=== PATIENT | female | born 1955 | race Caucasian/White ===

== ENCOUNTER 2016-10-25 23:33 | Emergency (ER) | payer OTHER ==
[2016-10-26 01:12] VITALS: BP 115/85
== END 2016-10-26 01:12 | disposition home or self-care (01) ==
LOC: ED 23:33
DX: S30.861A Insect bite (nonvenomous) of abdominal wall, initial encounter (principal); S80.862A Insect bite (nonvenomous), left lower leg, initial encounter; S80.861A Insect bite (nonvenomous), right lower leg, initial encounter; E11.9 Type 2 diabetes mellitus without complications; Z79.4 Long term (current) use of insulin; W57.XXXA Bitten or stung by nonvenomous insect and other nonvenomous arthropods, initial encounter; Y93.89 Activity, other specified; Y92.89 Other specified places as the place of occurrence of the external cause; Y99.8 Other external cause status
CPT/HCPCS: Q0163

== ENCOUNTER 2016-11-14 19:20 | Emergency (ER) | payer OTHER ==
[2016-11-14 22:12] VITALS: BP 145/86
== END 2016-11-14 22:12 | disposition home or self-care (01) ==
LOC: ED 19:20
DX: S30.0XXA Contusion of lower back and pelvis, initial encounter (principal); S70.02XA Contusion of left hip, initial encounter; G89.29 Other chronic pain; I10 Essential (primary) hypertension; K21.9 Gastro-esophageal reflux disease without esophagitis; E11.9 Type 2 diabetes mellitus without complications; E66.9 Obesity, unspecified; M13.80 Other specified arthritis, unspecified site; Z79.4 Long term (current) use of insulin; X50.1XXA Overexertion from prolonged static or awkward postures, initial encounter; Y93.89 Activity, other specified; Y99.8 Other external cause status; Y92.89 Other specified places as the place of occurrence of the external cause
CPT/HCPCS: J1885

== ENCOUNTER 2016-12-11 08:54 | Emergency (ER) | payer OTHER ==
[2016-12-11 10:55] VITALS: BP 154/81
== END 2016-12-11 11:11 | disposition home or self-care (01) ==
LOC: ED 08:54
DX: S90.852A Superficial foreign body, left foot, initial encounter (principal); E11.9 Type 2 diabetes mellitus without complications; I10 Essential (primary) hypertension; Z79.4 Long term (current) use of insulin; X58.XXXA Exposure to other specified factors, initial encounter; Y99.8 Other external cause status; Y93.89 Activity, other specified; Y92.89 Other specified places as the place of occurrence of the external cause
CPT/HCPCS: J2001; Q0092

== ENCOUNTER 2017-01-09 12:54 | Emergency (ER) | payer OTHER ==
[~2017-01-09] VITALS: Ht 172.7 cm; Wt 129.3 kg
[2017-01-09 14:27] VITALS: BP 146/89
== END 2017-01-09 14:28 | disposition home or self-care (01) ==
LOC: ED 12:54
DX: S80.01XA Contusion of right knee, initial encounter (principal); M17.31 Unilateral post-traumatic osteoarthritis, right knee; E11.9 Type 2 diabetes mellitus without complications; I10 Essential (primary) hypertension; W19.XXXA Unspecified fall, initial encounter; Y93.89 Activity, other specified; Y92.89 Other specified places as the place of occurrence of the external cause; Y99.8 Other external cause status; Z79.82 Long term (current) use of aspirin; Z79.4 Long term (current) use of insulin; Z98.51 Tubal ligation status
CPT/HCPCS: J1885

== ENCOUNTER 2017-01-15 23:20 | Inpatient (IN) | payer OTHER ==
[~2017-01-15] VITALS: Ht 172.7 cm; Wt 130.3 kg
[2017-01-16 00:31] LABS: BASOPHIL % 0.6 % (0-2); PLATELET COUNT 200 x10^3mcL (130-400); RED CELL DISTRIBUTION WIDTH 13.2 % (11.5-14.5)
[2017-01-16 00:48] LABS: CALCIUM 8.7 mg/dL (8.5-10.1); CARBON DIOXIDE 27.7 mmol/L (21-32); CHLORIDE SERUM 98 mmol/L (98-107); CREATININE SERUM 0.9 mg/dL (0.6-1.0); GFR1 > 60 mL/min; GLUCOSE SERUM 446 mg/dL (74-106); POTASSIUM SERUM 3.6 mmol/L (3.5-5.1); SODIUM SERUM 133 mmol/L (136-145)
[2017-01-16 00:54] LABS: ALKALINE PHOSPHATASE 124 U/L (46-116); ALT/SGPT 54 U/L (14-59); AST/SGOT 26 U/L (15-37); BILIRUBIN TOTAL 0.6 mg/dL (0.20-1.00); TOTAL PROTEIN, SERUM 6.7 g/dL (6.4-8.2)
[2017-01-16 00:57] LABS: ALBUMIN 3.3 g/dL (3.4-5.0)
[2017-01-16] MEDS ORDERED: ASPIR 8181 MG PO (01:23)
[2017-01-16] MEDS ORDERED: GLIPIZIDE10 M2 PO (01:23)
[2017-01-16] MEDS ORDERED: LANTUS SOLOS100 U/M1 SQ (01:24)
[2017-01-16] MEDS ORDERED: GABAPENTIN300 M4 PO (02:40)
[2017-01-16] MEDS ORDERED: SIMVASTATIN20 M1 PO (02:41)
[2017-01-16] MEDS ORDERED: BENAZEPRIL HYDR20 M1 PO (02:46)
[2017-01-16] MEDS ORDERED: GLUCOTROL10 MG PO (02:46)
[2017-01-16] MEDS ORDERED: APAP/HYDROCODON1 T11 PO (02:49)
[2017-01-16 03:18] LABS: T3 TOTAL 1.86 ng/mL
[2017-01-16 03:24] LABS: CHOLESTEROL/HDL RATIO 3.2
[2017-01-16 03:42] VITALS: BP 136/69
[2017-01-16 03:43] LABS: FREE T4 1.28 ng/dL (0.76-1.46); FREE THYROXINE INDEX 3.6 ug/dL (1.4-4.5)
[2017-01-16 08:13] VITALS: BP 131/64
[2017-01-16 11:38] LABS: microscopic required? NO
[2017-01-16 11:51] LABS: urine erythrocyte NEGATIVE (NEGATIVE)
[2017-01-16 15:05] VITALS: BP 119/65
[2017-01-16 18:21] VITALS: BP 125/74
[2017-01-16 20:41] VITALS: BP 151/75
[2017-01-17 05:43] VITALS: BP 152/74
[2017-01-17 07:15] LABS: CALCIUM 8.7 mg/dL (8.5-10.1); CARBON DIOXIDE 29.6 mmol/L (21-32); CHLORIDE SERUM 104 mmol/L (98-107); CREATININE SERUM 0.9 mg/dL (0.6-1.0); GFR1 > 60 mL/min; GLUCOSE SERUM 239 mg/dL (74-106); PHOSPHOROUS 4.2 mg/dL (2.5-4.9); SODIUM SERUM 140 mmol/L (136-145)
[2017-01-17 07:21] LABS: PLATELET COUNT 195 x10^3mcL (130-400); RED CELL DISTRIBUTION WIDTH 13.8 % (11.5-14.5)
[2017-01-17 08:22] LABS: ATYPICAL LYMPH 1 %; BAND NEUTROPHIL 3 % (0-10); BASOPHIL 0 % (0-2); MONOCYTE 11 % (0-7); PLATELET MORPHOLOGY GIANT PLATELET SEEN; SEGMENTED NEUTROPHILS 53 % (37-75); rbc morphology (normal/abnorm) ABNORMAL (NORMAL); tear drop cell (dacryocyte) 1+
[2017-01-17 10:12] VITALS: BP 137/59
[2017-01-17] MEDS ORDERED: NOR10T PO (11:17)
[2017-01-17] MEDS ORDERED: BENAZEPRIL HYDR20 M1 PO (11:21)
[2017-01-17] MEDS ORDERED: LIPI20 PO (11:27)
[2017-01-17] MEDS ORDERED: METFORMIN HCL500 MG PO (11:28)
[2017-01-17 13:44] VITALS: BP 137/59
== END 2017-01-17 15:07 | disposition home or self-care (01) | DRG 197 ==
LOC: ED 23:20 → DU 01-16 02:28 → MU 01-17 13:42 → DU 01-17 13:43
PROVIDERS: Emergency Medicine; Family Medicine; ADMIT Family Medicine
DX: E11.51 Type 2 diabetes mellitus with diabetic peripheral angiopathy without gangrene (principal); E11.628 Type 2 diabetes mellitus with other skin complications; E44.0 Moderate protein-calorie malnutrition; E11.65 Type 2 diabetes mellitus with hyperglycemia; L03.115 Cellulitis of right lower limb; E87.1 Hypo-osmolality and hyponatremia; L03.116 Cellulitis of left lower limb; Z68.41 Body mass index [BMI] 40.0-44.9, adult; I83.218 Varicose veins of right lower extremity with both ulcer of other part of lower extremity and inflammation; I83.228 Varicose veins of left lower extremity with both ulcer of other part of lower extremity and inflammation; I16.0 Hypertensive urgency; R00.1 Bradycardia, unspecified; E03.9 Hypothyroidism, unspecified; E66.01 Morbid (severe) obesity due to excess calories; Z79.4 Long term (current) use of insulin
CPT/HCPCS: 82962; 83880; 84439; J0696; J1815; J2270; J2405; J3490; J7030; Q0092

== ENCOUNTER 2017-06-05 12:26 | Emergency (ER) | payer MEDICAID ==
[~2017-06-05] VITALS: Ht 172.7 cm; Wt 127.0 kg
[~2017-06-05 12:26] MED LIST: APAP/HYDROCODON1 T11 PO; ASPIR 8181 MG PO; BENAZEPRIL HYDR20 M1 PO; GABAPENTIN300 M4 PO; GLIPIZIDE10 M2 PO; GLUCOTROL10 MG PO; LANTUS SOLOS100 U/M1 SQ; LIPI20 PO; METFORMIN HCL500 MG PO; NOR10T PO; SIMVASTATIN20 M1 PO
[2017-06-05 13:36] VITALS: BP 137/101
== END 2017-06-05 13:36 | disposition home or self-care (01) ==
LOC: ED 12:26
DX: B35.6 Tinea cruris (principal); B35.4 Tinea corporis; I10 Essential (primary) hypertension; E11.9 Type 2 diabetes mellitus without complications; G89.29 Other chronic pain; M54.9 Dorsalgia, unspecified; B19.20 Unspecified viral hepatitis C without hepatic coma

== ENCOUNTER 2017-12-03 15:21 | Inpatient (IN) | payer MEDICAID ==
[~2017-12-03] VITALS: Ht 175.3 cm; Wt 127.5 kg
[2017-12-03 15:23] VITALS: Ht 175.3 cm; Wt 127.5 kg
[2017-12-03 16:29] LABS: BASOPHIL % 0.4 % (0-2); PLATELET COUNT 225 x10^3mcL (130-400); RED CELL DISTRIBUTION WIDTH 12.6 % (11.5-14.5)
[2017-12-03 16:43] LABS: BILIRUBIN TOTAL 0.6 mg/dL (0.20-1.00); CALCIUM 8.6 mg/dL (8.5-10.1); CARBON DIOXIDE 28.9 mmol/L (21-32); CREATININE SERUM 1.2 mg/dL (0.6-1.0); POTASSIUM SERUM 4.2 mmol/L (3.5-5.1)
[2017-12-03 16:44] LABS: ALBUMIN 3.3 g/dL (3.4-5.0)
[2017-12-03 16:56] LABS: CK-MB 2.9 ng/mL (0-3.6)
[2017-12-03 16:58] LABS: microscopic required? NO
[2017-12-03 17:18] LABS: UA SPECIFIC GRAVITY <=1.005 (1.005-1.035); urine erythrocyte NEGATIVE (NEGATIVE)
[2017-12-03 17:45] LABS: CHOLESTEROL/HDL RATIO 3.1; MAGNESIUM 1.9 mg/dL (1.8-2.4); PHOSPHOROUS 3.7 mg/dL (2.5-4.9)
[2017-12-03 17:53] LABS: T3 TOTAL 1.63 ng/mL
[2017-12-03 18:02] LABS: FREE T4 1.26 ng/dL (0.76-1.46); FREE THYROXINE INDEX 4.1 ug/dL (1.4-4.5); T4(THYROXINE) 15.3 ug/dL (4.7-13.3)
[2017-12-03 18:03] VITALS: BP 154/75
[2017-12-03] MEDS ORDERED: HUMALOG100 U/ML SC (19:24)
[2017-12-03 20:50] VITALS: BP 158/71
[2017-12-03 22:43] LABS: AMPHETAMINE QUAL UR NONE DETECTED (NEG <=1000)
[2017-12-04 02:30] VITALS: BP 144/70
[2017-12-04 05:43] VITALS: BP 142/59
[2017-12-04 07:24] LABS: BASOPHIL % 0.6 % (0-2); PLATELET COUNT 193 x10^3mcL (130-400); RED CELL DISTRIBUTION WIDTH 12.6 % (11.5-14.5)
[2017-12-04 07:43] LABS: CALCIUM 8.1 mg/dL (8.5-10.1); CARBON DIOXIDE 27.9 mmol/L (21-32); CHLORIDE SERUM 107 mmol/L (98-107); CREATININE SERUM 0.8 mg/dL (0.6-1.0); GFR1 > 60 mL/min; GLUCOSE SERUM 207 mg/dL (74-106); MAGNESIUM 1.8 mg/dL (1.8-2.4); PHOSPHOROUS 3.7 mg/dL (2.5-4.9); POTASSIUM SERUM 3.9 mmol/L (3.5-5.1); SODIUM SERUM 144 mmol/L (136-145)
[2017-12-04 08:49] VITALS: BP 139/68
[2017-12-04 18:00] VITALS: BP 148/73
[2017-12-04 20:53] VITALS: BP 108/64
[2017-12-05 05:33] VITALS: BP 127/62
[2017-12-05 06:46] LABS: CALCIUM 8.2 mg/dL (8.5-10.1); CARBON DIOXIDE 28.2 mmol/L (21-32); CHLORIDE SERUM 106 mmol/L (98-107); CREATININE SERUM 0.9 mg/dL (0.6-1.0); GFR1 > 60 mL/min; GLUCOSE SERUM 227 mg/dL (74-106); MAGNESIUM 1.7 mg/dL (1.8-2.4); PHOSPHOROUS 4.1 mg/dL (2.5-4.9); SODIUM SERUM 140 mmol/L (136-145)
[2017-12-05 08:25] LABS: BASOPHIL % 0.5 % (0-2); PLATELET COUNT 201 x10^3mcL (130-400); RED CELL DISTRIBUTION WIDTH 12.8 % (11.5-14.5)
[2017-12-05 09:17] VITALS: BP 135/44
[2017-12-05] MEDS ORDERED: GLU850 PO (09:25)
[2017-12-05] MEDS ORDERED: GLU10 PO (09:25)
[2017-12-05] MEDS ORDERED: LEVEMIR100 U/M1 SC (09:29)
[2017-12-05] MEDS ORDERED: CLINDAMYCIN HC300 MG PO (09:34)
[2017-12-05] MEDS ORDERED: LAC PO (09:34)
[2017-12-05] MEDS ORDERED: LIPI10 PO (09:35)
[2017-12-05] MEDS ORDERED: ECO81 PO (09:35)
[2017-12-05] MEDS ORDERED: GLUCOCOM LANCE1 EAC1 MC (11:28)
[2017-12-05 11:35] VITALS: BP 135/44
[2017-12-05] MEDS ORDERED: FREESTYLE LITE1 EAC2 MC (11:46)
[2017-12-05] MEDS ORDERED: BLOOD GLUCOSE1 EACH MC (11:47)
[2017-12-05] MEDS ORDERED: APAP/HYDROCODON1 T13 PO (14:19)
== END 2017-12-05 14:30 | disposition home or self-care (01) | DRG 720 ==
LOC: ED 15:21 → MU 17:13 → DU 17:13 → MU 12-04 08:21
PROVIDERS: Emergency Medicine; Family Medicine
DX: A41.9 Sepsis, unspecified organism (principal); E11.65 Type 2 diabetes mellitus with hyperglycemia; I10 Essential (primary) hypertension; L03.115 Cellulitis of right lower limb; E44.1 Mild protein-calorie malnutrition; L03.116 Cellulitis of left lower limb; Z68.41 Body mass index [BMI] 40.0-44.9, adult; E66.01 Morbid (severe) obesity due to excess calories; E87.1 Hypo-osmolality and hyponatremia; E02 Subclinical iodine-deficiency hypothyroidism; Z86.73 Personal history of transient ischemic attack (TIA), and cerebral infarction without residual deficits; B19.20 Unspecified viral hepatitis C without hepatic coma; Z83.3 Family history of diabetes mellitus; Z82.49 Family history of ischemic heart disease and other diseases of the circulatory system; E83.42 Hypomagnesemia; D48.0 Neoplasm of uncertain behavior of bone and articular cartilage
CPT/HCPCS: 82962; 83880; 84439; J0690; J1815; J3475; J3490; J7030; Q0092; Q0163

== ENCOUNTER 2018-02-07 08:11 | Emergency (ER) | payer MEDICAID ==
[~2018-02-07] VITALS: Ht 172.7 cm; Wt 125.6 kg
[~2018-02-07 08:11] MED LIST changes: +APAP/HYDROCODON1 T13 PO; +BLOOD GLUCOSE1 EACH MC; +CLINDAMYCIN HC300 MG PO; +ECO81 PO; +FREESTYLE LITE1 EAC2 MC; +GLU10 PO; +GLU850 PO; +GLUCOCOM LANCE1 EAC1 MC; +HUMALOG100 U/ML SC; +LAC PO; +LEVEMIR100 U/M1 SC; +LIPI10 PO
[2018-02-07 08:19] VITALS: Ht 172.7 cm; Wt 125.6 kg
[2018-02-07 09:46] VITALS: BP 145/77
== END 2018-02-07 09:46 | disposition home or self-care (01) ==
LOC: ED 08:11
DX: M72.2 Plantar fascial fibromatosis (principal); I10 Essential (primary) hypertension; E11.9 Type 2 diabetes mellitus without complications; G89.29 Other chronic pain; M54.9 Dorsalgia, unspecified
CPT/HCPCS: Q0092

== ENCOUNTER 2018-03-06 16:59 | Emergency (ER) | payer MEDICAID ==
[~2018-03-06] VITALS: Ht 172.7 cm; Wt 125.6 kg
[2018-03-06 17:03] VITALS: Ht 172.7 cm; Wt 125.6 kg
[2018-03-06 19:13] VITALS: BP 144/80
== END 2018-03-06 19:13 | disposition home or self-care (01) ==
LOC: ED 16:59
DX: B35.6 Tinea cruris (principal); R22.2 Localized swelling, mass and lump, trunk; I10 Essential (primary) hypertension; Z86.73 Personal history of transient ischemic attack (TIA), and cerebral infarction without residual deficits; E11.9 Type 2 diabetes mellitus without complications

== ENCOUNTER 2018-04-27 20:25 | Emergency (ER) | payer MEDICAID ==
[~2018-04-27] VITALS: Ht 172.7 cm; Wt 122.7 kg
[2018-04-27 20:37] VITALS: Ht 172.7 cm; Wt 122.7 kg
[2018-04-27 22:28] LABS: BASOPHIL % 0.6 % (0-2); PLATELET COUNT 212 x10^3mcL (130-400); RED CELL DISTRIBUTION WIDTH 13.2 % (11.5-14.5)
[2018-04-27 22:45] LABS: ALBUMIN 3.5 g/dL (3.4-5.0); BILIRUBIN TOTAL 0.8 mg/dL (0.20-1.00); CALCIUM 8.9 mg/dL (8.5-10.1); CARBON DIOXIDE 31.5 mmol/L (21-32); CREATININE SERUM 1.1 mg/dL (0.6-1.0); POTASSIUM SERUM 4.6 mmol/L (3.5-5.1); TOTAL PROTEIN, SERUM 7.5 g/dL (6.4-8.2)
[2018-04-27 23:26] VITALS: BP 154/78
== END 2018-04-28 00:55 | disposition home or self-care (01) ==
LOC: ED 20:25
PROVIDERS: Emergency Medicine
DX: E11.9 Type 2 diabetes mellitus without complications (principal); K29.70 Gastritis, unspecified, without bleeding; G89.29 Other chronic pain; M54.9 Dorsalgia, unspecified; I10 Essential (primary) hypertension; Z86.73 Personal history of transient ischemic attack (TIA), and cerebral infarction without residual deficits; Z86.19 Personal history of other infectious and parasitic diseases; Z98.51 Tubal ligation status; Z90.89 Acquired absence of other organs; Z90.49 Acquired absence of other specified parts of digestive tract
CPT/HCPCS: 82962; J1815; J7030; Q0092

== ENCOUNTER 2018-06-11 16:52 | Inpatient (IN) | payer MEDICAID ==
[~2018-06-11] VITALS: Ht 172.7 cm; Wt 121.7 kg
[2018-06-11 17:10] VITALS: Ht 172.7 cm; Wt 121.7 kg
[2018-06-11 17:38] LABS: BASOPHIL % 0.5 % (0-2); PLATELET COUNT 255 x10^3mcL (130-400); RED CELL DISTRIBUTION WIDTH 13.8 % (11.5-14.5)
[2018-06-11 17:50] LABS: CALCIUM 8.8 mg/dL (8.5-10.1); CARBON DIOXIDE 26.8 mmol/L (21-32); CREATININE SERUM 1.1 mg/dL (0.6-1.0)
[2018-06-11 18:01] LABS: ALBUMIN 3.7 g/dL (3.4-5.0); BILIRUBIN TOTAL 0.77 mg/dL (0.20-1.00); TOTAL PROTEIN, SERUM 7.7 g/dL (6.4-8.2)
[2018-06-11 18:03] LABS: microscopic required? NO
[2018-06-11 18:08] LABS: UA SPECIFIC GRAVITY >=1.030 (1.005-1.035); urine erythrocyte NEGATIVE (NEGATIVE)
[2018-06-11 19:48] LABS: CHOLESTEROL/HDL RATIO 3.7; MAGNESIUM 1.8 mg/dL (1.8-2.4)
[2018-06-11 20:30] VITALS: BP 138/78
[2018-06-12 05:06] VITALS: BP 136/61
[2018-06-12 06:28] LABS: CALCIUM 8.5 mg/dL (8.5-10.1); CARBON DIOXIDE 28.6 mmol/L (21-32); CHLORIDE SERUM 106 mmol/L (98-107); CREATININE SERUM 0.9 mg/dL (0.6-1.0); GFR1 > 60 mL/min; GLUCOSE SERUM 174 mg/dL (74-106); POTASSIUM SERUM 3.4 mmol/L (3.5-5.1); SODIUM SERUM 142 mmol/L (136-145)
[2018-06-12 06:31] LABS: BASOPHIL % 0.7 % (0-2); PLATELET COUNT 208 x10^3mcL (130-400); RED CELL DISTRIBUTION WIDTH 13.9 % (11.5-14.5)
[2018-06-12 08:49] VITALS: BP 174/69
[2018-06-12 11:18] VITALS: BP 139/69
[2018-06-12 11:22] VITALS: BP 139/69
[2018-06-12 12:46] VITALS: BP 129/63
== END 2018-06-12 13:26 | disposition home or self-care (01) | DRG 198 ==
LOC: ED 16:52 → DU 19:02
PROVIDERS: Emergency Medicine; Internal Medicine
DX: I24.9 Acute ischemic heart disease, unspecified (principal); I11.9 Hypertensive heart disease without heart failure; E11.9 Type 2 diabetes mellitus without complications; I10 Essential (primary) hypertension; I25.10 Atherosclerotic heart disease of native coronary artery without angina pectoris; R09.1 Pleurisy; R74.0 Nonspecific elevation of levels of transaminase and lactic acid dehydrogenase [LDH]; Z68.39 Body mass index [BMI] 39.0-39.9, adult; Z86.73 Personal history of transient ischemic attack (TIA), and cerebral infarction without residual deficits; Z79.4 Long term (current) use of insulin
CPT/HCPCS: 82962; J1815; J1885; J2270; J2550; J7030; Q0092

== ENCOUNTER 2018-07-24 17:49 | Emergency (ER) | payer MEDICAID ==
[~2018-07-24] VITALS: Ht 172.7 cm; Wt 113.4 kg
[2018-07-24 17:52] VITALS: Ht 172.7 cm; Wt 113.4 kg
[2018-07-24 18:32] LABS: BASOPHIL % 0.7 % (0-2); PLATELET COUNT 221 x10^3mcL (130-400); RED CELL DISTRIBUTION WIDTH 13.7 % (11.5-14.5)
[2018-07-24 18:45] LABS: CALCIUM 9.2 mg/dL (8.5-10.1); CHLORIDE SERUM 102 mmol/L (98-107); CREATININE SERUM 0.8 mg/dL (0.6-1.0); GFR1 > 60 mL/min; GLUCOSE SERUM 178 mg/dL (74-106); POTASSIUM SERUM 3.5 mmol/L (3.5-5.1); SODIUM SERUM 139 mmol/L (136-145)
[2018-07-24 18:50] LABS: ALBUMIN 3.8 g/dL (3.4-5.0); ALKALINE PHOSPHATASE 65 U/L (46-116); ALT/SGPT 50 U/L (14-59); AST/SGOT 28 U/L (15-37); BILIRUBIN TOTAL 1.02 mg/dL (0.20-1.00); LIPASE 363 IU/L (73-393); TOTAL PROTEIN, SERUM 7.7 g/dL (6.4-8.2)
[2018-07-24 21:13] VITALS: BP 138/76
== END 2018-07-24 21:13 | disposition home or self-care (01) ==
LOC: ED 17:49
PROVIDERS: Emergency Medicine
DX: K59.00 Constipation, unspecified (principal); I10 Essential (primary) hypertension; E11.9 Type 2 diabetes mellitus without complications; G89.29 Other chronic pain; M54.9 Dorsalgia, unspecified; Z98.51 Tubal ligation status; Z90.89 Acquired absence of other organs; Z90.49 Acquired absence of other specified parts of digestive tract; Z86.19 Personal history of other infectious and parasitic diseases; Z86.73 Personal history of transient ischemic attack (TIA), and cerebral infarction without residual deficits
CPT/HCPCS: 36415; J7030

== ENCOUNTER 2018-09-26 08:31 | Emergency (ER) | payer MEDICAID ==
[~2018-09-26] VITALS: Ht 172.7 cm; Wt 93.9 kg
[2018-09-26 08:46] VITALS: Ht 172.7 cm; Wt 93.9 kg
[2018-09-26 09:19] LABS: BASOPHIL % 0.5 % (0-2); PLATELET COUNT 184 x10^3mcL (130-400); RED CELL DISTRIBUTION WIDTH 14.4 % (11.5-14.5)
[2018-09-26 09:38] LABS: CALCIUM 9.3 mg/dL (8.5-10.1); CHLORIDE SERUM 102 mmol/L (98-107); CREATININE SERUM 0.9 mg/dL (0.6-1.0); GFR1 > 60 mL/min; GLUCOSE SERUM 132 mg/dL (74-106); POTASSIUM SERUM 3.6 mmol/L (3.5-5.1); SODIUM SERUM 142 mmol/L (136-145)
[2018-09-26 09:43] LABS: ALBUMIN 3.9 g/dL (3.4-5.0); ALKALINE PHOSPHATASE 66 U/L (46-116); ALT/SGPT 76 U/L (14-59); AST/SGOT 37 U/L (15-37); BILIRUBIN TOTAL 1.8 mg/dL (0.20-1.00); LIPASE 124 IU/L (73-393); TOTAL PROTEIN, SERUM 7.9 g/dL (6.4-8.2)
[2018-09-26 10:23] VITALS: BP 147/81
== END 2018-09-26 10:23 | disposition home or self-care (01) ==
LOC: ED 08:31
PROVIDERS: Emergency Medicine
DX: N39.0 Urinary tract infection, site not specified (principal); I10 Essential (primary) hypertension; E11.9 Type 2 diabetes mellitus without complications; G89.29 Other chronic pain; Z98.51 Tubal ligation status; Z90.49 Acquired absence of other specified parts of digestive tract; Z98.890 Other specified postprocedural states; Z86.73 Personal history of transient ischemic attack (TIA), and cerebral infarction without residual deficits
CPT/HCPCS: 36415; Q0162

== ENCOUNTER 2018-10-08 13:45 | Emergency (ER) | payer MEDICAID ==
[~2018-10-08] VITALS: Ht 172.7 cm; Wt 90.3 kg
[2018-10-08 13:49] VITALS: Ht 172.7 cm; Wt 90.3 kg
[2018-10-08 16:43] LABS: CARBON DIOXIDE 31.6 mmol/L (21-32); CHLORIDE SERUM 99 mmol/L (98-107); CREATININE SERUM 0.9 mg/dL (0.6-1.0); GFR1 > 60 mL/min; GLUCOSE SERUM 94 mg/dL (74-106); POTASSIUM SERUM 3.2 mmol/L (3.5-5.1); SODIUM SERUM 140 mmol/L (136-145)
[2018-10-08 16:47] LABS: ALBUMIN 3.7 g/dL (3.4-5.0); ALKALINE PHOSPHATASE 50 U/L (46-116); ALT/SGPT 44 U/L (14-59); AST/SGOT 27 U/L (15-37); BILIRUBIN TOTAL 1.38 mg/dL (0.20-1.00); LIPASE 121 IU/L (73-393); TOTAL PROTEIN, SERUM 7.1 g/dL (6.4-8.2)
[2018-10-08 17:02] LABS: BASOPHIL % 0.7 % (0-2); PLATELET COUNT 194 x10^3mcL (130-400)
[2018-10-08 17:06] LABS: RED CELL DISTRIBUTION WIDTH 14.6 % (11.5-14.5)
[2018-10-08 17:59] VITALS: BP 128/76
== END 2018-10-08 18:00 | disposition home or self-care (01) ==
LOC: ED 13:45
PROVIDERS: Emergency Medicine
DX: K29.70 Gastritis, unspecified, without bleeding (principal); I10 Essential (primary) hypertension; E11.9 Type 2 diabetes mellitus without complications; G89.29 Other chronic pain; Z86.19 Personal history of other infectious and parasitic diseases; Z86.73 Personal history of transient ischemic attack (TIA), and cerebral infarction without residual deficits; Z98.51 Tubal ligation status; Z90.49 Acquired absence of other specified parts of digestive tract; Z90.89 Acquired absence of other organs
CPT/HCPCS: 36415; J1885; J2405; J7030

== ENCOUNTER 2018-10-21 11:00 | Emergency (ER) | payer OTHER ==
[~2018-10-21] VITALS: Ht 172.7 cm; Wt 87.5 kg
[2018-10-21 11:07] VITALS: Ht 172.7 cm; Wt 87.5 kg
[2018-10-21 13:52] VITALS: BP 173/87
== END 2018-10-21 13:55 | disposition home or self-care (01) ==
LOC: ED 11:00
DX: N28.89 Other specified disorders of kidney and ureter (principal); K59.09 Other constipation; I10 Essential (primary) hypertension; E11.9 Type 2 diabetes mellitus without complications; R11.0 Nausea; G89.29 Other chronic pain; Z90.49 Acquired absence of other specified parts of digestive tract; Z98.51 Tubal ligation status; Z86.19 Personal history of other infectious and parasitic diseases

== ENCOUNTER 2018-11-30 14:59 | Inpatient (IN) | payer OTHER ==
[~2018-11-30] VITALS: Ht 172.7 cm; Wt 80.8 kg
[2018-11-30 18:10] LABS: BASOPHIL % 0.4 % (0-2); PLATELET COUNT 170 x10^3mcL (130-400)
[2018-11-30 18:13] LABS: RED CELL DISTRIBUTION WIDTH 15.4 % (11.5-14.5)
[2018-11-30 18:32] LABS: CALCIUM 10.4 mg/dL (8.5-10.1); CREATININE SERUM 1.6 mg/dL (0.6-1.0); POTASSIUM SERUM 3.2 mmol/L (3.5-5.1); TOTAL PROTEIN, SERUM 7.5 g/dL (6.4-8.2)
[2018-11-30 19:11] LABS: ALBUMIN 3.9 g/dL (3.4-5.0); BILIRUBIN TOTAL 1.8 mg/dL (0.20-1.00)
[2018-11-30 19:36] LABS: UA SPECIFIC GRAVITY >=1.030 (1.005-1.035); microscopic required? YES; urine erythrocyte NEGATIVE (NEGATIVE)
[2018-11-30 22:35] LABS: MAGNESIUM 2.3 mg/dL (1.8-2.4); PHOSPHOROUS 3.6 mg/dL (2.5-4.9)
[2018-11-30 23:00] VITALS: BP 126/71
[2018-11-30 23:08] VITALS: Ht 172.7 cm; Wt 80.8 kg
[2018-12-01 05:31] VITALS: BP 109/58
[2018-12-01 06:50] LABS: CALCIUM 9.5 mg/dL (8.5-10.1); CARBON DIOXIDE 29.4 mmol/L (21-32); CREATININE SERUM 1.3 mg/dL (0.6-1.0); POTASSIUM SERUM 3.8 mmol/L (3.5-5.1)
[2018-12-01 07:26] LABS: BASOPHIL % 0.6 % (0-2); PLATELET COUNT 135 x10^3mcL (130-400); RED CELL DISTRIBUTION WIDTH 15.4 % (11.5-14.5)
[2018-12-01 09:09] VITALS: BP 156/85
[2018-12-01 16:33] VITALS: BP 173/85
[2018-12-01 20:26] VITALS: BP 112/73
[2018-12-02 05:37] VITALS: BP 125/68
[2018-12-02 07:43] LABS: BASOPHIL % 0.7 % (0-2); PLATELET COUNT 123 x10^3mcL (130-400); RED CELL DISTRIBUTION WIDTH 15.7 % (11.5-14.5)
[2018-12-02 07:50] VITALS: BP 113/56
[2018-12-02 08:40] LABS: CALCIUM 8.6 mg/dL (8.5-10.1); CARBON DIOXIDE 33.9 mmol/L (21-32); PHOSPHOROUS 2.7 mg/dL (2.5-4.9)
[2018-12-02 09:22] LABS: POTASSIUM SERUM 2.9 mmol/L (3.5-5.1)
[2018-12-02 16:40] VITALS: BP 149/80
[2018-12-02 20:39] VITALS: BP 115/81
[2018-12-03 05:46] VITALS: BP 129/75
[2018-12-03 07:22] LABS: CALCIUM 8.6 mg/dL (8.5-10.1); CARBON DIOXIDE 28.4 mmol/L (21-32); CHLORIDE SERUM 106 mmol/L (98-107); CREATININE SERUM 0.9 mg/dL (0.6-1.0); GFR1 > 60 mL/min; GLUCOSE SERUM 86 mg/dL (74-106); POTASSIUM SERUM 3.4 mmol/L (3.5-5.1); SODIUM SERUM 140 mmol/L (136-145)
[2018-12-03 09:28] VITALS: BP 151/82
[2018-12-03 18:13] VITALS: BP 126/102
[2018-12-03 21:17] VITALS: BP 140/80
[2018-12-04 06:12] VITALS: BP 136/75
[2018-12-04 06:13] LABS: BASOPHIL % 0.8 % (0-2)
[2018-12-04 06:33] LABS: PLATELET COUNT 118 x10^3mcL (130-400); RED CELL DISTRIBUTION WIDTH 15.3 % (11.5-14.5)
[2018-12-04 07:16] LABS: CALCIUM 8.4 mg/dL (8.5-10.1); CARBON DIOXIDE 25.9 mmol/L (21-32); CHLORIDE SERUM 105 mmol/L (98-107); CREATININE SERUM 0.7 mg/dL (0.6-1.0); GFR1 > 60 mL/min; GLUCOSE SERUM 79 mg/dL (74-106); MAGNESIUM 1.5 mg/dL (1.8-2.4); PHOSPHOROUS 2.3 mg/dL (2.5-4.9); POTASSIUM SERUM 3.2 mmol/L (3.5-5.1); SODIUM SERUM 141 mmol/L (136-145)
[2018-12-04 09:45] VITALS: BP 167/83
[2018-12-04 17:45] VITALS: BP 158/84
[2018-12-04 20:24] VITALS: BP 160/76
[2018-12-05 04:38] VITALS: BP 137/77
[2018-12-05 06:15] VITALS: BP 137/77
[2018-12-05 06:33] LABS: CALCIUM 8.1 mg/dL (8.5-10.1); CARBON DIOXIDE 31.7 mmol/L (21-32); CHLORIDE SERUM 103 mmol/L (98-107); CREATININE SERUM 0.8 mg/dL (0.6-1.0); GFR1 > 60 mL/min; GLUCOSE SERUM 82 mg/dL (74-106); SODIUM SERUM 140 mmol/L (136-145)
[2018-12-05 06:38] LABS: POTASSIUM SERUM 2.8 mmol/L (3.5-5.1)
[2018-12-05 07:18] LABS: BASOPHIL % 0.8 % (0-2); PLATELET COUNT 110 x10^3mcL (130-400); RED CELL DISTRIBUTION WIDTH 15.3 % (11.5-14.5)
[2018-12-05 08:19] VITALS: BP 143/63
[2018-12-05 11:45] VITALS: BP 123/69
[2018-12-05 15:45] VITALS: BP 133/67
[2018-12-05 20:00] VITALS: BP 136/84
[2018-12-06 05:38] VITALS: BP 150/79
[2018-12-06 06:32] LABS: CALCIUM 8.4 mg/dL (8.5-10.1); CARBON DIOXIDE 26.9 mmol/L (21-32); CHLORIDE SERUM 107 mmol/L (98-107); CREATININE SERUM 0.8 mg/dL (0.6-1.0); GFR1 > 60 mL/min; GLUCOSE SERUM 90 mg/dL (74-106); POTASSIUM SERUM 3.2 mmol/L (3.5-5.1); SODIUM SERUM 143 mmol/L (136-145)
[2018-12-06 07:02] LABS: PLATELET COUNT 112 x10^3mcL (130-400); RED CELL DISTRIBUTION WIDTH 15.3 % (11.5-14.5)
[2018-12-06 09:58] VITALS: BP 138/73
[2018-12-06] MEDS ORDERED: MIRUD PO (16:17)
[2018-12-06] MEDS ORDERED: BACO TOP (16:18)
[2018-12-06] MEDS ORDERED: APLICARE ANTIS118 M3 TOP (16:18)
[2018-12-06 16:29] VITALS: BP 138/73
[2018-12-06 17:26] VITALS: BP 162/84
== END 2018-12-07 00:18 | DRG 422 ==
LOC: ED 14:59 → MU 21:59
PROVIDERS: Emergency Medicine; Family Medicine; Internal Medicine Gastroenterology; ADMIT Internal Medicine
PROC: 0DB78ZX Excision of Stomach, Pylorus, Via Natural or Artificial Opening Endoscopic, Diagnostic (ICD-10-PCS; principal; 2018-12-05 09:00)
PROC: 0D718ZZ Dilation of Upper Esophagus, Via Natural or Artificial Opening Endoscopic (ICD-10-PCS; 2018-12-05 09:00)
DX: E86.0 Dehydration (principal); N17.0 Acute kidney failure with tubular necrosis; K29.80 Duodenitis without bleeding; E11.9 Type 2 diabetes mellitus without complications; I10 Essential (primary) hypertension; E87.6 Hypokalemia; K70.30 Alcoholic cirrhosis of liver without ascites; K59.00 Constipation, unspecified; K22.4 Dyskinesia of esophagus; Z79.4 Long term (current) use of insulin; Z68.27 Body mass index [BMI] 27.0-27.9, adult; Z79.84 Long term (current) use of oral hypoglycemic drugs; Z86.73 Personal history of transient ischemic attack (TIA), and cerebral infarction without residual deficits
CPT/HCPCS: 43235; 83880; 92526-GN; 92610; 97116-GP; 97530-GP; J1200; J1610; J1885; J2060; J2250; J2310; J2405; J2550; J2765; J3010; J3480; J3490; J7030; Q0092

== ENCOUNTER 2019-01-17 07:41 | Emergency (ER) | payer OTHER ==
[~2019-01-17] VITALS: Ht 172.7 cm; Wt 63.5 kg
[~2019-01-17 07:41] MED LIST changes: +APLICARE ANTIS118 M3 TOP; +BACO TOP; +MIRUD PO
[2019-01-17 07:46] VITALS: Ht 172.7 cm; Wt 63.5 kg
[2019-01-17 08:34] LABS: BASOPHIL % 0.8 % (0-2); PLATELET COUNT 175 x10^3mcL (130-400)
[2019-01-17 08:35] LABS: RED CELL DISTRIBUTION WIDTH 14.7 % (11.5-14.5)
[2019-01-17 08:54] LABS: CALCIUM 9.5 mg/dL (8.5-10.1); CHLORIDE SERUM 104 mmol/L (98-107); CREATININE SERUM 0.9 mg/dL (0.6-1.0); GFR1 > 60 mL/min; GLUCOSE SERUM 150 mg/dL (74-106); POTASSIUM SERUM 3.5 mmol/L (3.5-5.1); SODIUM SERUM 145 mmol/L (136-145)
[2019-01-17 08:58] LABS: ALBUMIN 3.4 g/dL (3.4-5.0); ALKALINE PHOSPHATASE 47 U/L (46-116); ALT/SGPT 28 U/L (14-59); AST/SGOT 19 U/L (15-37); BILIRUBIN TOTAL 1.8 mg/dL (0.20-1.00); LIPASE 69 IU/L (73-393); TOTAL PROTEIN, SERUM 6.7 g/dL (6.4-8.2)
[2019-01-17 09:39] LABS: UA SPECIFIC GRAVITY >=1.030 (1.005-1.035); microscopic required? YES; urine erythrocyte 3+ (NEGATIVE)
[2019-01-17 11:15] VITALS: BP 144/109
== END 2019-01-17 11:15 | disposition home or self-care (01) ==
LOC: ED 07:41
PROVIDERS: Emergency Medicine
DX: E11.43 Type 2 diabetes mellitus with diabetic autonomic (poly)neuropathy (principal); K31.84 Gastroparesis; N39.0 Urinary tract infection, site not specified; I10 Essential (primary) hypertension; G89.29 Other chronic pain; Z98.51 Tubal ligation status; Z90.49 Acquired absence of other specified parts of digestive tract; Z98.890 Other specified postprocedural states; Z86.73 Personal history of transient ischemic attack (TIA), and cerebral infarction without residual deficits; Z87.42 Personal history of other diseases of the female genital tract
CPT/HCPCS: J0696; J2765; J7030; J7060